=== PATIENT | male | born 1975 | race Caucasian/White ===

== ENCOUNTER 2016-09-20 12:52 | Emergency (ER) | payer OTHER ==
[~2016-09-20] VITALS: Ht 185.4 cm; Wt 124.7 kg
[~2016-09-20 12:52] MED LIST: AUGMENTIN 875875 MG PO; BENADRYL50 MG PO; CATAFLAM50 MG PO; CIPROFLOXACIN500 MG PO; FLEXERIL10 MG PO; KENALOG0.1% TP; MOTRIN800 MG PO; NAPROSYN500 MG PO; NKHM; NORCO 325 MG-101 TAB PO; PREDNISONE20 MG PO; TOBRADEX 0.1%-0.5 ML OPH; TRAMADOL HCL50 MG PO; ULTRAM50 MG PO; ZITHROMAX Z PA250 MG PO; ZOFRAN ODT4 MG SL
== END 2016-09-20 14:49 | disposition left against medical advice (07) ==
LOC: ED 12:52
DX: J20.9 Acute bronchitis, unspecified (principal); Z91.030 Bee allergy status

== ENCOUNTER 2017-07-26 14:30 | Emergency (ER) | payer OTHER ==
[~2017-07-26] VITALS: Ht 213.3 cm; Wt 115.7 kg
[2017-07-26] MEDS ORDERED: CIPROFLOXACIN 110 ML OPH (16:01)
[2017-07-27] MEDS ORDERED: ACULAR 3ML 3 ML5 ML OPH (03:27)
[2017-07-27] MEDS ORDERED: TOBRAMYCIN 5 ML5 M2 OPH (03:27)
== END 2017-07-26 15:43 | disposition home or self-care (01) ==
LOC: ED 14:30
DX: S05.01XA Injury of conjunctiva and corneal abrasion without foreign body, right eye, initial encounter (principal); Z91.030 Bee allergy status; X58.XXXA Exposure to other specified factors, initial encounter; Y93.89 Activity, other specified; Y92.89 Other specified places as the place of occurrence of the external cause; Y99.8 Other external cause status

== ENCOUNTER 2017-07-27 02:20 | Emergency (ER) | payer OTHER ==
[~2017-07-27] VITALS: Wt 115.7 kg
[~2017-07-27 02:20] MED LIST changes: +CIPROFLOXACIN 110 ML OPH
[2017-07-27] MEDS ORDERED: ACULAR 3ML 3 ML5 ML OPH (03:27)
[2017-07-27] MEDS ORDERED: TOBRAMYCIN 5 ML5 M2 OPH (03:27)
== END 2017-07-27 03:53 | disposition home or self-care (01) ==
LOC: ED 02:20
DX: S05.02XA Injury of conjunctiva and corneal abrasion without foreign body, left eye, initial encounter (principal); S05.01XA Injury of conjunctiva and corneal abrasion without foreign body, right eye, initial encounter; Z91.030 Bee allergy status; X58.XXXA Exposure to other specified factors, initial encounter; Y93.89 Activity, other specified; Y92.89 Other specified places as the place of occurrence of the external cause; Y99.8 Other external cause status

== ENCOUNTER 2018-05-20 21:54 | Emergency (ER) | payer OTHER ==
[~2018-05-20] VITALS: Ht 182.8 cm; Wt 129.3 kg
[~2018-05-20 21:54] MED LIST changes: +ACULAR 3ML 3 ML5 ML OPH; +TOBRAMYCIN 5 ML5 M2 OPH
[2018-05-20] MEDS ORDERED: ZOFRAN4 MG PO (23:08)
== END 2018-05-20 23:11 | disposition home or self-care (01) ==
LOC: ED 21:54
DX: R11.2 Nausea with vomiting, unspecified (principal); R19.7 Diarrhea, unspecified; R63.0 Anorexia; Z91.030 Bee allergy status; Z79.899 Other long term (current) drug therapy

== ENCOUNTER 2018-05-27 02:59 | Emergency (ER) | payer OTHER ==
[~2018-05-27] VITALS: Ht 180.3 cm; Wt 131.5 kg
[~2018-05-27 02:59] MED LIST changes: +ZOFRAN4 MG PO
[2018-05-27 03:36] LABS: BASO % 0.4 % (0.0-1.0); EOS # 0.2 10*3/uL (0.0-0.4); EOS % 2.5 % (1.0-4.0); HEMATOCRIT 49.6 % (42.0-52.0); HEMOGLOBIN 15.9 g/dl (14.0-18.0); LYMPH # 1.9 10*3/uL (1.3-4.4); LYMPH % 20.2 % (27.0-41.0); MEAN CELL VOLUME 92.4 fl (80.0-94.0); MEAN CORPUSCULAR HGB 29.6 pg (27.0-31.0); MEAN CORPUSCULAR HGB CONC 32.1 g/dl (33.0-37.0); MEAN PLATELET VOLUME 10.7 fl (9.6-12.3); MONO # 0.7 10*3/uL (0.1-1.0); MONO % 7.7 % (3.0-9.0); NEUT # 6.6 10*3/uL (2.3-7.9); NEUT % 68.5 % (47.0-73.0); PLATELET COUNT AUTOMATED 237 10*3/uL (130-400); RED BLOOD COUNT 5.37 10*6/uL (4.50-5.90); RED CELL DISTRI WIDTH 13.5 % (0-14.5); WHITE BLOOD COUNT 9.6 10*3/uL (4.8-10.8)
[2018-05-27 03:49] LABS: ALBUMIN 3.6 gm/dl (3.1-4.5); ALKALINE PHOSPHATASE 86 U/L (45-117); BUN 14 mg/dl (7-24); CHLORIDE 108 mmol/L (98-107); CREATININE 1.03 mg/dL (0.70-1.30); SGOT/AST 15 IU/L (3-35); SGPT/ALT 33 U/L (12-78); SODIUM 143 mmol/L (136-145)
== END 2018-05-27 04:58 | disposition home or self-care (01) ==
LOC: ED 02:59
PROVIDERS: Emergency Medicine
DX: R11.10 Vomiting, unspecified (principal); R19.7 Diarrhea, unspecified; Z91.030 Bee allergy status

== ENCOUNTER 2019-07-12 06:59 | Emergency (ER) | payer OTHER ==
[~2019-07-12] VITALS: Ht 182.8 cm; Wt 136.1 kg
[~2019-07-12 06:59] MED LIST changes: +SEPTDS PO
[2019-07-12] MEDS ORDERED: Motrin,Rufen800 MG PO (08:38)
== END 2019-07-12 08:51 | disposition home or self-care (01) ==
LOC: ED 06:59
DX: S46.912A Strain of unspecified muscle, fascia and tendon at shoulder and upper arm level, left arm, initial encounter (principal); Z91.030 Bee allergy status; Z79.2 Long term (current) use of antibiotics; Z79.899 Other long term (current) drug therapy; W00.0XXA Fall on same level due to ice and snow, initial encounter; Y93.89 Activity, other specified; Y92.89 Other specified places as the place of occurrence of the external cause; Y99.8 Other external cause status